=== PATIENT | male | born 1995 | race Two or more races ===

== ENCOUNTER 2018-05-04 00:11 | Emergency (ER) | payer SELFPAY ==
[~2018-05-04] VITALS: Ht 190.5 cm; Wt 77.1 kg
--- NOTE | 2018-05-04 00:20 | NUR ---
TO ROOM 2A WITH C/O REDNESS AND RASH TO FACE, POSSIBLE ALLERGIC REACTION AFTER TAKING COGH MEDICINE, RASH LOCALIZED TO FACE ONLY, MILD ITCHING, NO RESPIRATORY DISTRESS, O2 SAT 10% ON RA, VSS, SEEN BY DR WHITE, ORDERS NOTED.
[2018-05-04] MEDS ORDERED: DEXAMETHASONE SOD PHOSPHATE 4 MG INJ IM ONE (00:45)
[2018-05-04] MEDS ORDERED: DEXAMETHASONE SOD PHOSPHATE 10 MG INJ ONE (00:55)
--- NOTE | 2018-05-04 01:00 | NUR ---
MEDICATED WITH DECADRON 12MG IM TO RIGHT DELTOID. TOLDERATE WELL.
--- NOTE | 2018-05-04 01:03 | NUR ---
DISCARGE HOME WITH RX AN INSTRUCTIONS TO F/U WITH PMD IN AM, INSTRCTED TO RETURN IF SYMPTOMS WORSEN OR RESPIRATORY DISTRESS, AMBULATED OUT OF ER IN STABLE CONDITION,VSS, NAD.
[2018-05-04 01:06] VITALS: BP 116/71
== END 2018-05-04 01:07 | disposition home or self-care (01) ==
LOC: ER 00:15
DX: T78.40XA Allergy, unspecified, initial encounter (principal); R21 Rash and other nonspecific skin eruption; Z88.1 Allergy status to other antibiotic agents
CPT/HCPCS: 96372; 99283; J1100; A4663